=== PATIENT | female | born 1960 | race Caucasian/White ===

== ENCOUNTER → 2019-07-06 | Outpatient (REF) | LOC: M LAB LCGH 15:27 | PROVIDERS: ATTEND Obstetrics & Gynecology | DX: N84.0 Polyp of corpus uteri (principal); N93.9 Abnormal uterine and vaginal bleeding, unspecified ==

== ENCOUNTER → 2019-07-30 | Outpatient (CLI) | payer MEDICARE ==
[~2019-07-30] MED LIST: ASPI81TA85 PO; ATOR80TA59 PO; COZA50TA PO; ENOX40IN3 SC; FERR325T3 PO; GASTROGRAFIN SOLUTION 30ML (Q9963) As Ordered ONE; ISOVUE-370 76% 100ML VIAL (Q9967) As Ordered ONE; NORE5TAB12 PO; QC A650T3 PO
--- NOTE | 2019-07-31 08:40 | REP ---
Clinical: Endometrial carcinoma. Technique: Axial contrast enhanced images from the lung bases to the pubic symphysis using oral (per protocol) and 100 ml Isovue 370 intravenous contrast material with delayed images of the abdomen as well as coronal and sagittal re-formations. Comparison: None. Findings: Lung bases suggest mild pulmonary vascular congestion. Visualized portions of the heart and pericardium are normal. Liver demonstrates mild fatty infiltration and small 1 cm cyst at the caudate lobe without further abnormality noted. Spleen, gallbladder, bilateral adrenal glands and kidneys are essentially normal. Incidental 1 cm right renal simple cyst is appreciated. Pancreas includes a 1.6 cm cyst in the uncinate process which is otherwise nonspecific. The enteric system is without obstruction or acute inflammatory process. Few scattered sigmoid diverticula noted without acute diverticulitis. Evaluation of the pelvis demonstrates normal bladder. The uterus is heterogeneously enhancing and enlarged with suggestions for a discrete 6.2 cm right myometrial mass having submucosal and subserosal borders. Few nonspecific pelvic sidewall lymph nodes are identified which measure up to approximately 10 mm. No pelvic inflammatory stranding or fluid collection identified. No ascites. No free air. Subcentimeter intraperitoneal and retroperitoneal lymph nodes are nonspecific. Innumerable soft tissue nodules are identified within the subcutaneous tissues along the anterior abdominal pelvic wall measuring roughly up to 2.2 cm and are otherwise nonspecific. These findings may represent injection granulomas given the small amount of associated subcutaneous gas, but clinical correlation is required. Musculoskeletal structures demonstrate degenerative changes without focal osseous abnormality. Impression: 1. Heterogeneous enhancing uterine mass is nonspecific. Finding may be related to the given history of endometrial carcinoma although fibroid is also within differential diagnosis. Small peripelvic lymph nodes measuring up to 10 mm are nonspecific. No ascites. No obvious abdominopelvic mass/metastatic lesion. 2. Soft tissue nodules within the anterior abdominal wall subcutaneous tissues with small amounts of subcutaneous gas requires correlation. Findings may represent injection granulomas. 3. 1.6 cm nonspecific cyst in the pancreatic uncinate process may warrant MRI investigation. 4. Simple benign hepatic and renal cyst. Electronically Signed by Haroldo Brandon MD 07/31/2019 08:31 A
== END ==
LOC: M RAD 15:57
PROVIDERS: ATTEND Internal Medicine Medical Oncology
DX: C54.1 Malignant neoplasm of endometrium (principal); K57.30 Diverticulosis of large intestine without perforation or abscess without bleeding; K86.2 Cyst of pancreas; N28.1 Cyst of kidney, acquired; K76.89 Other specified diseases of liver
CPT/HCPCS: 74177; Q9963; Q9967